=== PATIENT | female | born 1995 | race Caucasian/White ===

== ENCOUNTER 2019-03-14 22:40 | Emergency (ER) | payer MEDICAID, OTHER ==
[~2019-03-14] VITALS: Ht 162 cm; Wt 56.8 kg
[2019-03-14] MEDS ORDERED: SERT25TA PO (22:52)
--- NOTE | 2019-03-14 22:56 | ED Lower Extremity ---
General Chief Complaint: Lower Extremity Stated Complaint: LT FOOT PAIN Source: patient History of Present Illness Date Seen by Provider: Mar 14, 2019 Time Seen by Provider: 22:45 Initial Comments PT ARRIVES VIA POV, THEN WHEELCHAIR ON ARRIVAL C/O INJURY TO LEFT FOOT STATES SHE WAS WALKING AND ROLLED HER FOOT/ANKLE OCCURRED AT 2200 TONIGHT DID NOT FALL AND DOES NOT HAVE ANY OTHER INJURIES NO PARESTHESIAS OR MOTOR DEFICITS STATES SHE DID BREAK HER LEFT ANKLE YEARS AGO FROM GYMNASTICS, BUT DID NOT REQUIRE SURGERY STATES SHE HAS BEEN DRINKING TONIGHT PSU STUDENT FROM [facility] Allergies and Home Medications Allergies Coded Allergies: No Known Drug Allergies (Unverified , 03/14/19) Home Medications Tramadol HCl 50 Mg Tablet, 50 MG PO Q4H PRN for PAIN-MODERATE Prescribed by: MELISSA WEST on 03/14/19 2128 Patient Home Medication List Home Medication List Reviewed: Yes Review of Systems Constitutional: no symptoms reported LMP: Mar 04, 2019 Musculoskeletal: see HPI Skin: no symptoms reported Psychiatric/Neurological: No Symptoms Reported Past [id number]-[id number] Hx Patient Social History Alcohol Use: Regular Use (COUPLE OF TIMES A WEEK) Recreational Drug Use: No Smoking Status: Never a Smoker Recent Foreign Travel: No Contact w/Someone Who Travel: No Past Medical History Surgeries: Yes (LEFT SHOULDER LABRUM REPAIR) Orthopedic Respiratory: No Cardiac: No Neurological: No Reproductive Disorders: No Genitourinary: No Gastrointestinal: No Musculoskeletal: Yes (LEFT ANKLE FRACTURE--NO SURGERY) Fractures Endocrine: No HEENT: No Cancer: No Psychosocial: Yes Anxiety, Violent Behavior Integumentary: No Blood Disorders: No Physical Exam Vital Signs Vital Signs - First Documented 03/14/19 22:44 Temp 36.7 Pulse 98 Resp 20 B/P (MAP) 125/90 (102) Pulse Ox 98 O2 Delivery Room Air Capillary Refill : Height, Weight, BMI Height: '" Weight: lbs. oz. kg; BMI Method: General Appearance: WD/WN, no apparent distress, other (ODOR OF ETOH) Hips: left hip normal inspection Legs: left leg normal inspection Knees: left knee normal inspection Feet: left foot bone tenderness, left foot limited range of motion, left foot soft tissue tenderness, left foot swelling, left foot other (SWELLING, EARLY BRUISING, TENDERNESS TO LATERAL ASPECT OF LEFT FOOT, UP TO LATERAL MALLEOLUS AREA. DISTAL MOTOR/SENSORY/VASCULAR INTACT. ) Neurologic/Tendon: normal sensation, normal motor functions, normal tendon functions Neurologic/Psychiatric: field trainer II-XII nml as tested, no motor/sensory deficits, alert, normal mood/affect, oriented x 3 Skin: normal color, warm/dry, ecchymosis Procedures/Interventions Splinting and Joint Reduction : Gerson wrap: Yes Immobilizers: Step Light Walker s/m/lg Ordered: Crutches Progress/Results/Core Measures Results/Orders My Orders Orders - MELISSA WEST DO Foot, Left, 3 Views (03/14/19 22:49) Ankle, Left, 3 Views (03/14/19 22:49) Gerson Bandage (03/14/19 23:13) Crutches (03/14/19 23:13) Steplite (03/14/19 23:13) Rx-Tramadol Hcl (Rx-Ultram) (03/14/19 23:13) Vital Signs/I&O 03/14/19 03/14/19 22:44 23:22 Temp 36.7 36.7 Pulse 98 98 Resp 20 20 B/P (MAP) 125/90 (102) 125/90 (102) Pulse Ox 98 98 O2 Delivery Room Air Diagnostic Imaging Comments XRAYS LEFT FOOT AND ANKLE--NON-DISPLACED FRACTURE PROXIMAL 5TH METATARSAL, PENDING RADIOLOGIST REVIEW Reviewed: Reviewed by Me Departure Impression Primary Impression: Closed nondisplaced fracture of fifth left metatarsal bone Disposition: 01 HOME, SELF-CARE Condition: Stable Departure-Patient Inst. Referrals: NO,LOCAL PHYSICIAN (PCP) Primary Care Physician NOLVIA SOSA MD Patient Instructions: Foot Fracture (DC), Going Up and Down Curbs or Stairs With a Walker or Crutches, How to Use Crutches, How to Use an Elastic Bandage Add. Discharge Instructions: ICE TO AREA AT 20 MINUTE INTERVALS ELEVATED FOOT MUCH POSSIBLE GERSON WRAP, BOOT AND CRUTCHES AT ALL TIMES FOLLOW UP WITH DR. SOSA, ORTHOPEDIC SURGEON, IN THE NEXT FEW DAYS FOR FURTHER CARE All discharge instructions reviewed with patient and/or family. Voiced understanding. Scripts Tramadol HCl (Ultram) 50 Mg Tablet 50 MG PO Q4H PRN for PAIN-MODERATE for 3 Days, TAB Prov: MELISSA WEST DO 03/14/19 MELISSA WEST DO Mar 14, 2019 22:56 POS
[2019-03-14] MEDS ORDERED: RX-TRAMADOL 50 MG (ULTRAM) TAB PPK#4 PO STA (23:13)
[2019-03-14] MEDS ORDERED: TRAM-42 PO (23:20)
[2019-03-14 23:22] VITALS: BP 125/90
--- NOTE | 2019-03-15 06:54 | Diagnostic Imaging Report ---
INDICATION: Pain COMPARISON: Imaging from the same date TECHNIQUE: 3 radiographs of the left foot dated 03/14/2019 FINDINGS: Transversely oriented fracture involving the base of the 5th metatarsal is identified. There is extension to the 5th TMT joint. The fractured fragment involving the bases slightly laterally displaced. No additional acute fracture or dislocation. No destructive osseous process. No suspicious radiopaque foreign body. Soft tissue swelling overlying the base of the 5th metatarsal. IMPRESSION: Acute minimally displaced fracturing involving the base of the 5th metatarsal with slight intra-articular extension of the 5th TMT joint. Dictated by: Dictated on workstation # [id number]
--- NOTE | 2019-03-15 06:55 | Diagnostic Imaging Report ---
INDICATION: Pain COMPARISON: Imaging from the same date TECHNIQUE: 3 radiographs of the left ankle dated 03/14/2019 FINDINGS: Acute fracture involving the base of the 5th metatarsal is noted. No additional acute fracture or dislocation. No destructive osseous process. The talar dome is unremarkable. The ankle mortise is symmetric. No suspicious radiopaque foreign body. IMPRESSION: Acute fracture involving the base of the 5th metatarsal. Dictated by: Dictated on workstation # [id number]
== END 2019-03-14 23:22 | disposition home or self-care (01) ==
LOC: ER 22:43
DX: S92.355A Nondisplaced fracture of fifth metatarsal bone, left foot, initial encounter for closed fracture (principal); F41.9 Anxiety disorder, unspecified; F91.8 Other conduct disorders; Z87.81 Personal history of (healed) traumatic fracture; X50.1XXA Overexertion from prolonged static or awkward postures, initial encounter
CPT/HCPCS: 73610; 73630

== ENCOUNTER → 2020-01-22 | Outpatient (CLI) | payer OTHER ==
[~2020-01-22] MED LIST: SERT25TA PO; TRAM-42 PO
--- NOTE | 2020-01-22 17:20 | Diagnostic Imaging Report ---
Exam: Left lower extremity ultrasound. Date: January 22, 2020. Indication: 24-year-old female, left inguinal pain. Comparison: None. Findings: Targeted ultrasound evaluation in the left inguinal region was performed. There is an abnormal-appearing lymph node in the left inguinal region which measures 1.4 x 1.1 x 2.1 cm in size. There is no demonstrated hernia. Impression: Abnormal appearing left inguinal lymph node measuring up to 1.4 x 1.1 x 2.1 cm in size. Recommend correlation clinically for causative etiology. Dictated by: Dictated on workstation # [id number]
== END ==
LOC: RAD 16:22
PROVIDERS: ATTEND Family Medicine
DX: R10.32 Left lower quadrant pain (principal)
CPT/HCPCS: 76881